=== PATIENT | male | born 1950 | race Caucasian/White ===

== ENCOUNTER 2018-01-26 07:43 | Day surgery (SDC) | payer MEDICARE, OTHER ==
[~2018-01-26] VITALS: Ht 180.3 cm; Wt 96.5 kg
[2018-01-26] VITALS (10 sets, daily range): BP systolic 130–164; BP diastolic 54–90
[2018-01-26] MEDS ORDERED: sod bicarbonate 150mEq in D5W 1,150 ML IV ONE (08:05)
[2018-01-26] MEDS ORDERED: normal saline 1000ml 1,000 ML IV SCH (08:05)
[2018-01-26] MEDS ORDERED: diphenhydrAMINE 25mg capsule PO PRN (08:10)
[2018-01-26] MEDS ORDERED: NITR0.4T51 SL (08:58)
[2018-01-26] MEDS ORDERED: LOSA25TA96 PO (08:58)
[2018-01-26] MEDS ORDERED: SAXA5TAB PO (08:58)
[2018-01-26] MEDS ORDERED: ATOR10TA70 PO (08:58)
[2018-01-26] MEDS ORDERED: FLO0.4C PO (08:58)
[2018-01-26] MEDS ORDERED: CLOP75TA33 PO (08:58)
[2018-01-26] MEDS ORDERED: CHOL100046 PO (08:58)
[2018-01-26] MEDS ORDERED: ASPI-1265 PO (08:58)
[2018-01-26] MEDS ORDERED: SILD50TA PO (08:58)
[2018-01-26] MEDS ORDERED: GLYB5TAB7 PO (08:58)
[2018-01-26] MEDS ORDERED: METF-436 PO (08:58)
[2018-01-26] MEDS ORDERED: heparin 1,000unit/ml 10ml vial 10 ML ONE (09:55)
[2018-01-26] MEDS ORDERED: iohexol 350 MG/ML 50ML vial IV ONE (09:55)
[2018-01-26] MEDS ORDERED: LIDOcaine 1% (10mg/ml)w/preservative injection 20ml MDV ONE (09:55)
[2018-01-26] MEDS ORDERED: fentaNYL/PF 50MCG/1 ML 2ML syringe ONE (09:55)
[2018-01-26] MEDS ORDERED: iohexol 350MG/ML 100ml bottle IV ONE ×2 (09:55→10:58)
[2018-01-26] MEDS ORDERED: midazolam 2 mg/2 ml injection ONE ×2 (09:55→10:54)
[2018-01-26 10:04] LABS: ANION GAP 11 (8-16); BLOOD UREA NITROGEN 17 MG/DL (7-18); BUN/CREATININE RATIO 15.3 (5.4-32.0); CALCIUM 10.1 MG/DL (8.5-10.1); CHLORIDE 103 MMOL/L (99-107); CREATININE 1.11 MG/DL (0.60-1.10); GLUCOSE 235 MG/DL (70-104); MAGNESIUM 1.5 MG/DL (1.5-2.4); POTASSIUM 4.5 MMOL/L (3.5-5.1); SODIUM 140 MMOL/L (135-145); TOTAL CARBON DIOXIDE 25.7 MMOL/L (24-32); eGFR 66 ML/MIN
[2018-01-26 10:06] LABS: BASOPHILS % (AUTO) 0.4 % (0-1); EOSINOPHILS # (AUTO) 0.2 X10'3 (0-0.9); EOSINOPHILS % (AUTO) 2.1 % (0-6); HEMATOCRIT 47.7 % (42.0-52.0); HEMOGLOBIN 15.9 g/dl (14.0-17.9); LYMPHOCYTES # (AUTO) 2.6 X10'3 (1.1-4.8); LYMPHOCYTES % (AUTO) 27.5 % (21-51); MEAN CORPUSCULAR HEMOGLOBIN 32.1 PG (27.0-31.0); MEAN CORPUSCULAR HGB CONC 33.3 % (33.0-36.5); MEAN CORPUSCULAR VOLUME 96.4 FL (78-98); MEAN PLATELET VOLUME 7.8 FL (7.4-10.4); MONOCYTES # (AUTO) 0.7 X10'3 (0-0.9); MONOCYTES % (AUTO) 7.2 % (2-12); NEUTROPHILS # (AUTO) 5.9 X10'3 (1.8-7.7); NEUTROPHILS % (AUTO) 62.8 % (42-75); PLATELET COUNT 219 X10'3 (140-440); RED BLOOD COUNT 4.94 X10'6 (4.70-6.10); RED CELL DISTRIBUTION WIDTH 13.7 % (11.5-14.5); WHITE BLOOD COUNT 9.5 X10'3 (4.5-11.0)
[2018-01-26 10:29] LABS: PROTHROMBIN TIME 9.8 SECONDS (9.0-12.0)
[2018-01-26 10:30] LABS: PARTIAL THROMBOPLASTIN TIME 24 SECONDS (22-32)
== END 2018-01-26 15:20 | disposition home or self-care (01) ==
LOC: SSTAY O 07:43
PROVIDERS: ATTEND Internal Medicine Cardiovascular Disease
DX: I70.211 Atherosclerosis of native arteries of extremities with intermittent claudication, right leg (principal); I25.2 Old myocardial infarction; Z79.82 Long term (current) use of aspirin; Z79.84 Long term (current) use of oral hypoglycemic drugs; Z79.899 Other long term (current) drug therapy; Z79.01 Long term (current) use of anticoagulants
CPT/HCPCS: 36415; 37226; 80048; 82948; 83735; 85025; 85610; 85730; 93005; 99152; 99153; C1760; C1876; J1644; J2001; J2250; J3010; J7030; Q0163; Q9967; 37224; A4620; C1725; C1769; C1894; C2623

== ENCOUNTER 2018-04-13 05:50 | Inpatient (IN) | payer MEDICARE, OTHER | END 2018-04-15 09:40 | disposition home or self-care (01) | LOC: SSTAY O 05:50 → ICU 2S 10:03 | PROC: 04CM3ZZ Extirpation of Matter from Right Popliteal Artery, Percutaneous Approach (ICD-10-PCS; principal; ~2018-04-13) | PROC: 047M34Z Dilation of Right Popliteal Artery with Drug-eluting Intraluminal Device, Percutaneous Approach (ICD-10-PCS; ~2018-04-13) | PROC: B41F0ZZ Fluoroscopy of Right Lower Extremity Arteries using High Osmolar Contrast (ICD-10-PCS; ~2018-04-13) | DX: I73.9 Peripheral vascular disease, unspecified (principal); I74.3 Embolism and thrombosis of arteries of the lower extremities ==

== ENCOUNTER 2019-03-01 12:05 | Outpatient (CLI) | payer MEDICARE, OTHER ==
[~2019-03-01 12:05] MED LIST: ALOG25TA2 PO; ATOR10TA70 PO; AZIT-63 PO; CEFD300C3 PO; CHOL100046 PO; CLOP75TA33 PO; FLO0.4C PO; GLYB5TAB7 PO; INSU100V12 SQ; LISI-600 PO; METF-438 PO; NITR0.4T51 SL; RIVA20TA PO; SILD50TA PO
== END 2019-03-01 23:59 | disposition home or self-care (01) ==
LOC: RAD 12:05
PROVIDERS: ATTEND Specialist
DX: J44.9 Chronic obstructive pulmonary disease, unspecified (principal); J18.9 Pneumonia, unspecified organism
CPT/HCPCS: 71046

== ENCOUNTER 2020-11-05 05:25 | Day surgery (SDC) | payer MEDICARE, OTHER ==
[2020-10-30 15:39] LABS: BASOPHILS # (AUTO) 0.1 X10'3 (0-0.2); BASOPHILS % (AUTO) 0.7 % (0-1); EOSINOPHILS # (AUTO) 0.1 X10'3 (0-0.9); EOSINOPHILS % (AUTO) 1.3 % (0-6); LYMPHOCYTES # (AUTO) 2.1 X10'3 (1.1-4.8); LYMPHOCYTES % (AUTO) 23.5 % (21-51); MEAN CORPUSCULAR HEMOGLOBIN 32.9 PG (27.0-31.0); MEAN CORPUSCULAR HGB CONC 33.4 g/dL (33.0-36.5); MEAN CORPUSCULAR VOLUME 98.6 FL (78-98); MEAN PLATELET VOLUME 7.3 FL (7.4-10.4); MONOCYTES # (AUTO) 0.9 X10'3 (0-0.9); MONOCYTES % (AUTO) 9.3 % (2-12); NEUTROPHILS % (AUTO) 65.2 % (42-75); PRE OP HEMATOCRIT 45.1 % (42.0-52.0); PRE OP HEMOGLOBIN 15.1 g/dL (14.0-17.9); PRE OP PLATELET COUNT 244 X10'3 (140-440); RED BLOOD COUNT 4.58 X10'6 (4.70-6.10); RED CELL DISTRIBUTION WIDTH 14.2 % (11.5-14.5)
[2020-10-30 15:50] LABS: ALBUMIN/GLOBULIN RATIO 1.2 (1.1-1.5); ALKALINE PHOSPHATASE 76 IU/L (46-116); BLOOD UREA NITROGEN 25 MG/DL (7-18); BUN/CREATININE RATIO 17.6 (5.4-32.0); CALCIUM 9.3 MG/DL (8.5-10.1); CHLORIDE 108 MMOL/L (99-107); CREATININE 1.42 MG/DL (0.60-1.10); PRE OP ALT 19 U/L (30-65); PRE OP ANION GAP 8 (8-16); PRE OP AST 17 U/L (10-37); PRE OP BILIRUB, TOTAL 1.2 MG/DL (0.0-1.0); PRE OP GLUCOSE 168 MG/DL (70-104); PRE OP POTASSIUM 4.8 MMOL/L (3.4-5.1); PRE OP SODIUM 142 MMOL/L (135-145); TOTAL PROTEIN 7.3 G/DL (6.4-8.2); eGFR 49 ML/MIN
[~2020-11-05] VITALS: Ht 180.3 cm; Wt 87.6 kg
[2020-11-05] VITALS (10 sets, daily range): BP systolic 102–153; BP diastolic 50–77
[~2020-11-05 05:25] MED LIST changes: -ALOG25TA2 PO; -AZIT-63 PO; -CEFD300C3 PO; -CHOL100046 PO; +CHOL400T8 PO; +EMPA25TA PO; -GLYB5TAB7 PO; +HUM7525 SQ; -INSU100V12 SQ; -LISI-600 PO; +LISI-790 PO; -SILD50TA PO; +ringers solution, lacted 1,000 ML IV SCH
[2020-11-05] MEDS ORDERED: famotidine 20mg tablet PO ONE (05:30)
[2020-11-05] MEDS ORDERED: cefazolin/dext.iso 2gm/100ml IV ONE (05:30)
[2020-11-05] MEDS ORDERED: ipratropium/albuterol 3ml nebule NEB STA (06:37)
[2020-11-05] MEDS ORDERED: LIDOcaine 1% 30ml preserv. free vial ONE (06:42)
[2020-11-05] MEDS ORDERED: BUPIVAcaine/PF 2.5mg/ml (0.25%) 10ml vial ONE (06:42)
[2020-11-05] MEDS ORDERED: meperidine/PF 25mg/ml syringe ONE (07:22)
[2020-11-05] MEDS ORDERED: fentaNYL/PF 50MCG/1 ML 2ML syringe ONE (07:22)
[2020-11-05] MEDS ORDERED: midazolam 1 mg/ML 2ml injection ONE (07:22)
[2020-11-05] MEDS ORDERED: ringers solution, lacted 1,000 ML IV SCH (07:30)
[2020-11-05] MEDS ORDERED: ondansetron/PF 4mg/2ml inj IV PRN (07:30)
[2020-11-05] MEDS ORDERED: morphine 4 MG/ML inj SYRINge IV PRN (07:30)
[2020-11-05] MEDS ORDERED: meperidine/PF 25mg/ml syringe IV PRN ×3 (07:30)
[2020-11-05] MEDS ORDERED: proCHLORperazine 10 MG/2 ml inj IV PRN (07:30)
[2020-11-05] MEDS ORDERED: morphine 2 MG/ML inj. syringe IV PRN (07:30)
[2020-11-05] MEDS ORDERED: sevoflurane 250ml liquid IH ONE (07:38)
[2020-11-05] MEDS ORDERED: neostigmine methylsulfate 1 MG/ML 10ml vial ONE (07:38)
[2020-11-05] MEDS ORDERED: propofol inj 20 ML IV ONE (07:45)
[2020-11-05] MEDS ORDERED: LIDOcaine 2% (20mg/ml) 5ml vial ONE (07:45)
[2020-11-05] MEDS ORDERED: dexamethasone sod phosphate 4mg/ml inj. ONE (07:52)
[2020-11-05] MEDS ORDERED: ondansetron/PF 4mg/2ml inj ONE (07:52)
[2020-11-05] MEDS ORDERED: rocuronium 10mg/ml inj IV ONE (07:52)
[2020-11-05] MEDS ORDERED: acetaminophen 1,000mg/100ml IV 100 ML IV ONE (08:37)
[2020-11-05] MEDS ORDERED: glycopyrrolate 0.2mg/ml inj ONE (08:55)
--- NOTE | 2020-11-05 09:02 | NUR ---
Received from OR via , accompanied by Anesthesiologist DR MONTENEGRO and report given by Anesthesiolgist. AWAKENS TO VOICE. VITALS STABLE. DRESSINGS DI. BECKA PAIN. ABD SOFT.
[2020-11-05] MEDS ORDERED: HYDROcodone/acetaminophen 5mg/325mg tablet PO PRN (09:05)
--- NOTE | 2020-11-05 10:42 | NUR ---
AWAKE AND ORIENTED. VITALS STABLE. DRESSINGS DI. BECKA PAIN. HOME WITH HIS AT THIS TIME.
== END 2020-11-05 10:42 | disposition home or self-care (01) ==
LOC: PAS 05:25
PROVIDERS: ATTEND Surgery
DX: K40.90 Unilateral inguinal hernia, without obstruction or gangrene, not specified as recurrent (principal); K42.9 Umbilical hernia without obstruction or gangrene; I25.10 Atherosclerotic heart disease of native coronary artery without angina pectoris; E78.5 Hyperlipidemia, unspecified; E11.9 Type 2 diabetes mellitus without complications; N40.0 Benign prostatic hyperplasia without lower urinary tract symptoms; J43.9 Emphysema, unspecified; I10 Essential (primary) hypertension; I25.2 Old myocardial infarction; Z86.718 Personal history of other venous thrombosis and embolism; Z20.822 Contact with and (suspected) exposure to COVID-19; Z95.1 Presence of aortocoronary bypass graft; Z79.899 Other long term (current) drug therapy; Z79.01 Long term (current) use of anticoagulants; Z79.4 Long term (current) use of insulin; Z87.891 Personal history of nicotine dependence; Z95.5 Presence of coronary angioplasty implant and graft; Z87.01 Personal history of pneumonia (recurrent); Z83.3 Family history of diabetes mellitus; Z82.3 Family history of stroke; Z82.49 Family history of ischemic heart disease and other diseases of the circulatory system
CPT/HCPCS: 36415; 49585; 49650; 80053; 82948; 85025; 93005; 94640; 94760; C1781; J0131; J1100; J2001; J2175; J2250; J2405; J2704; J3010; J3490; U0003; U0005; Z7506; Z7508; Z7512; A4215; A4618; J2710; J7120

== ENCOUNTER 2021-05-23 12:05 | Emergency (ER) | payer MEDICARE, OTHER ==
[~2021-05-23] VITALS: Ht 180.3 cm; Wt 91.8 kg
[~2021-05-23 12:05] MED LIST changes: -LISI-790 PO; +LISI5TAB22 PO; -ringers solution, lacted 1,000 ML IV SCH
[2021-05-23 12:09] VITALS: BP 164/82
[2021-05-23] MEDS ORDERED: HYDR-3965 PO (17:58)
[2021-05-23] MEDS ORDERED: CYCL-1 PO (17:58)
== END 2021-05-23 18:30 | disposition home or self-care (01) ==
LOC: ER 12:06
DX: M79.604 Pain in right leg (principal); M54.31 Sciatica, right side; I73.9 Peripheral vascular disease, unspecified; I25.10 Atherosclerotic heart disease of native coronary artery without angina pectoris; J43.9 Emphysema, unspecified; E11.9 Type 2 diabetes mellitus without complications; Z87.01 Personal history of pneumonia (recurrent); Z87.891 Personal history of nicotine dependence; Z95.5 Presence of coronary angioplasty implant and graft; Z79.899 Other long term (current) drug therapy; Z79.4 Long term (current) use of insulin; Z95.1 Presence of aortocoronary bypass graft; Z98.890 Other specified postprocedural states
CPT/HCPCS: 93926; 99284

== ENCOUNTER 2023-05-31 09:59 | Outpatient (CLI) | payer OTHER ==
[~2023-05-31 09:59] MED LIST changes: +CYCL-1 PO
[2023-05-31 11:40] LABS: ALANINE AMINOTRANSFERASE 17 U/L (12-78); ALBUMIN 3.7 G/DL (3.4-5.0); ALKALINE PHOSPHATASE 67 IU/L (46-116); ANION GAP 9 (8-16); ASPARTATE AMINO TRANSFERASE 15 U/L (10-37); BILIRUBIN,TOTAL 1.2 MG/DL (0.1-1.0); BLOOD UREA NITROGEN 25 MG/DL (7-18); BUN/CREATININE RATIO 18.1 (10.0-20.0); CALCIUM 9.4 MG/DL (8.5-10.1); CHLORIDE 107 MMOL/L (99-107); CREATININE 1.38 MG/DL (0.60-1.10); GLUCOSE 93 MG/DL (70-104); POTASSIUM 4.4 MMOL/L (3.5-5.1); SODIUM 141 MMOL/L (135-145); TOTAL CARBON DIOXIDE 24.9 MMOL/L (24-32); TOTAL PROTEIN 7.3 G/DL (6.4-8.2); eGFR 51 ML/MIN
[2023-05-31 12:02] LABS: BILIRUBIN,URINE NEGATIVE (Neg); CLARITY,URINE CLEAR (Clear); COLOR,URINE YELLOW (Yellow); GLUCOSE, URINE >=1000 mg/dl (Neg); KETONES,URINE NEGATIVE (Neg); LEUKOCYTE ESTERASE ,URINE NEGATIVE (Neg); NITRITES, URINE NEGATIVE (Neg); OCCULT BLOOD,URINE NEGATIVE (Neg); PH,URINE 5.5 (4.8-8.0); PROTEIN,URINE TRACE mg/dl (Neg); UROBILINOGEN,URINE 0.2 E.U/dL (0.2-1.0)
[2023-05-31 12:06] LABS: UA COLLECTION TYPE CLN CATCH MIDSTREAM
[2023-05-31 12:09] LABS: BACTERIA,URINE NONE SEEN /HPF (Neg); MUCUS STRANDS NONE SEEN /LPF (Neg); RBC,URINE NONE SEEN /HPF (0-2); SQUAMOUS EPITHELIAL CELL,UR NONE SEEN /LPF (FEW); WBC,URINE 0-4 /HPF (0-4)
== END 2023-05-31 23:59 | disposition home or self-care (01) ==
LOC: CARD DIAG 09:59
PROVIDERS: ATTEND Chiropractor
DX: I08.8 Other rheumatic multiple valve diseases (principal); I25.10 Atherosclerotic heart disease of native coronary artery without angina pectoris; E11.9 Type 2 diabetes mellitus without complications
CPT/HCPCS: 36415; 80053; 81001; 93306

== ENCOUNTER 2023-06-15 13:49 | Outpatient (CLI) | payer OTHER | END 2023-06-15 23:59 | disposition home or self-care (01) | LOC: VAS 13:49 | PROVIDERS: ATTEND Chiropractor | DX: I73.9 Peripheral vascular disease, unspecified (principal) | CPT/HCPCS: 93922 ==